=== PATIENT | female | born 1945 | race Two or more races ===

== ENCOUNTER 2025-01-27 03:38 | Emergency (ER) | payer MEDICARE, SELFPAY ==
[2025-01-27 03:40] VITALS: BMI 26.5
[2025-01-27 03:48] VITALS: BP 166/97; PULSE 88; RESP 17; TEMP 36.8; O2SAT 97
--- NOTE | 2025-01-27 03:53 | EKG_ITS ---
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
--- NOTE | 2025-01-27 03:54 | PD.EDRME ---
Rapid Medical Screening Exam RME Arrival date/time: 01/27/25 03:38 79F with history of HTN and recent SBO presents to ED with 1 day of epigastric pain that radiates to throat, as well as some N/V. Patient states this time it feels different than when she had SBO because she a lot of pain then. Now, she's more concerned about the N/V. Chief Complaint: Nausea/Vomiting/Diarrhea Vital signs: Vital Signs Temperature 98.2 F 01/27/25 03:48 Pulse Rate 88 01/27/25 03:48 Respiratory Rate 17 01/27/25 03:48 Blood Pressure 166/97 H 01/27/25 03:48 Pulse Oximetry (%) 97 01/27/25 03:48 Oxygen Delivery Method Room Air 01/27/25 03:48
--- NOTE | 2025-01-27 03:55 | XR_ITS ---
EXAMINATION: PA chest single view TECHNIQUE: 1. Upright PA chest single view Date and time: January 27, 2025, 0400 hours, comparison November 28, 2023 INDICATIONS: Epigastric pain and nausea vomiting today. FINDINGS: : Mild prominence left ventricle Ectatic thoracic aorta. Mild accentuation of bronchovascular markings. No lobar pneumonia or shawn pulmonary edema Moderate osteopenia IMPRESSION: Bronchitis pattern
[2025-01-27] MEDS: ONDANSETRON ODT 4 MG TABRAP PO (04:00)
[2025-01-27 05:02] LABS: Lactate (Lactic Acid) 1.5 mMol/L (0.4-2.0)
[2025-01-27 05:03] LABS: Basophils # (Auto) 0.1 Thou/mm3 (0.0-0.2); Basophils % (Auto) 1 % (0-2.5); Eosinophils # (Auto) 0.1 Thou/mm3 (0.0-0.5); Eosinophils % (Auto) 1 % (0-10); Hematocrit 35.6 % (36.0-46.0); Hemoglobin 11.2 g/dL (12.0-16.0); Immature Granulocytes Auto 0.04 Thou/mm3 (0.00-0.00); Lymphocytes # (Auto) 1.0 Thou/mm3 (1.0-4.8); Lymphocytes % (Auto) 10 % (10-50); Mean Corpuscular HGB Conc 31.5 g/dl (31.0-37.0); Mean Corpuscular Hemoglobin 21.6 pg (25.0-35.0); Mean Corpuscular Volume 69 fL (80-100); Monocytes # (Auto) 0.7 Thou/mm3 (0.0-0.8); Monocytes % (Auto) 6 % (0-12); Neutrophils # (Auto) 8.6 Thou/mm3 (1.8-7.7); Neutrophils % (Auto) 82 % (37-80); Nucleated Red Blood Cell # 0.00 Thou/mm3 (0.00-0.00); Nucleated Red Blood Cell % 0 /100 WBC (0); Platelet Count 391 Thou/mm3 (140-440); RDW Standard Deviation 41.5 fL (36.4-46.3); Red Blood Count 5.18 Miln/mm3 (4.00-5.20); White Blood Count 10.4 Thou/mm3 (3.6-11.0)
[2025-01-27 05:22] LABS: Alanine Aminotransferase 12 U/L (10-49); Albumin, Serum 4.6 gm/dL (3.4-4.8); Albumin/Globulin Ratio 1.6 (1.2-2.2); Alkaline Phosphatase 100 U/L (46-116); Anion Gap 11 (7-16); Aspartate Amino Transferase 25 U/L (0-34); BUN/Creatinine Ratio 16 Ratio (12-20); Bilirubin,Total 0.5 mg/dL (0.3-1.2); Blood Urea Nitrogen 11 mg/dL (9-23); Calcium 9.0 mg/dL (8.3-10.6); Calcium (Corrected) 9.0 mg/dL (8.5-10.1); Carbon Dioxide 25.0 mMol/L (20.0-31.0); Chloride 102 mMol/L (98-107); Creatinine (Component) 0.7 mg/dL (0.6-1.3); Estimated Creatinine Clearance 54.3 mL/min (>60); Globulin 2.8 gm/dL (2.3-3.5); Glucose 159 mg/dL (74-106); Lipase 28 U/L (12-53); Osmolality,Calculated 278 (275-295); Potassium 3.6 mMol/L (3.4-5.1); Sodium 138 mMol/L (136-145); Total Protein 7.4 gm/dL (5.7-8.2); Troponin I < 0.020 ng/mL (0.0-0.045); eGFR > 60 See Note
[2025-01-27 05:40] VITALS: BP 163/81; PULSE 88; RESP 18; TEMP 36.9; O2SAT 99
--- NOTE | 2025-01-27 06:28 | XR_ITS ---
Examination: CT abdomen and pelvis without contrast. Coronal 3-D reconstructions. Sagittal 2-D reconstructions. Date and time of exam: January 27, 2025, 0845 hours INDICATIONS: Upper abdominal pain and burning sensation in the abdomen beginning this morning COMPARISON: November 28, 2023 CTDI: vol (mGy): 7.47 DLP: (mGycm): 372 Technique: Axial images of the abdomen have been obtained, 3 mm slice thickness Intravenous contrast material has not been administered. Low dose protocols were performed. One or more of the following dose reduction techniques were used; automated exposure control, adjustment of the mA and/or KV according to patient size, use of iterative reconstruction technique. Findings: Large retrocardiac gastric hernia No focal liver or splenic lesions Absent gallbladder No extrahepatic biliary tract dilatation No pancreatic or adrenal mass No renal or ureteral calculi, no hydronephrosis Aortic calcification no aneurysmal dilatation Normal appendix Multiple fluid distended small bowel loops in the pelvis Urinary bladder intact No pelvic mass IMPRESSION: Small bowel obstruction pattern, recommend Gastrografin small bowel series follow-up
[2025-01-27] MEDS: SODIUM CHLORIDE 0.9% 1000 ML 1,000 ML 999 ML IV (06:47)
[2025-01-27 07:24] VITALS: BP 170/91; PULSE 92; RESP 18; TEMP 36.6; O2SAT 97
[2025-01-27] MEDS: FAMOTIDINE INJ 10 MG/ML VIAL 2 ML 20 MG IVP (08:33)
[2025-01-27] MEDS: ACETAMINOPHEN IVPB 1,000 MG/100 ML VIAL 250 MG IV (08:56)
[2025-01-27 09:04] VITALS: BP 143/77; PULSE 80; RESP 20; TEMP 36.8; O2SAT 98
[2025-01-27 09:12] LABS: Collection Type, Urine Clean Catch
[2025-01-27 09:19] LABS: Bilirubin,Urine Negative (Negative); Blood,Urine Negative (Negative); Clarity,Urine Clear (Clear/Hazy); Color,Urine Lt-Yellow (Lt Yel-Yel); Glucose, Urine Negative (Negative); Ketones,Urine 1+ (Negative); Leukocyte Esterase,Urine Negative (Negative); Nitrite,Urine Negative (Negative); PH,Urine 7.0 (5.0-7.0); Protein,Urine Negative (Neg - Trace); RBC,Urine 1 /hpf (0-3); Specific Gravity,Urine 1.012 (1.001-1.035); Squamous Epithelial Cell,Urine < 1 /hpf (0-5); Urobilinogen,Urine Negative mg/dL (0.0-1.0); WBC,Urine 1 /hpf (0-5)
--- NOTE | 2025-01-27 10:42 | PD.EDABDPN ---
ED Abdominal Pain RME/HPI General Chief Complaint: Nausea/Vomiting/Diarrhea Stated complaint: NV AND ABD PAIN Time seen by provider: 01/27/25 06:15 Arrival date/time: 01/27/25 03:38 Limitations: no limitations RME / HPI RME / HPI narrative: 01/27/25 03:38 79F with history of HTN and recent SBO presents to ED with 1 day of epigastric pain that radiates to throat, as well as some N/V. Patient states this time it feels different than when she had SBO because she a lot of pain then. Now, she's more concerned about the N/V. DR. CARLSON MAIN ED EVALUATION: 79 year old female with history of hypertension and previous admission for SBO that resolved with gastrografin presents to the ED for evaluation of abdominal pain that began yesterday. Pain described as aching in sensation that is located most to the upper abdomen, rating 8/10 in severity. Accompanied by nausea and vomiting. Reports the pain today feels different than previous episodes of abdominal pain which concerned her. Denies fevers, chills, chest pain, cough, shortness of breath, diarrhea, or urinary symptoms. Related Data Home Medications ?Medication ?Instructions ?Recorded ?Confirmed clonazepam 0.5 mg disintegrating 0.5 mg PO BID 06/06/19 06/06/19 tablet Previous Rx's ?Medication ?Instructions ?Recorded meclizine 25 mg tablet 25 mg PO TID PRN dizziness #20 tabs 04/13/23 losartan 50 mg tablet 50 mg PO QDAY #30 tabs 11/30/23 Allergies Allergy/AdvReac Type Severity Reaction Status Date / Time ibuprofen Allergy Mild Rash Verified 01/27/25 03:43 Review of Systems Review of Systems Systems Reviewed: All systems reviewed, normal except as documented Past Medical History Past Medical History CARDIAC: Positive Hypercholesterolemia and Hypertension ENDOCRINE: Positive Hypothyroidism Surgical History SURGICAL: Positive Abdominal Surgery Social History SMOKING STATUS: Never smoker SUBSTANCE USE: does not use ED Exam General Limitations: Present no limitations General appearance: Present alert and in no apparent distress Head Head exam: Present atraumatic, normocephalic and normal inspection Eye Eye exam: Present normal appearance, PERRL and EOMI ENT ENT exam: Present normal exam, normal oropharynx and mucous membranes moist Neck Neck exam: Present normal inspection, full ROM and trachea midline Chest Chest inspection: Present normal inspection and symmetric chest wall rise Respiratory Respiratory exam: Present normal lung sounds bilaterally Cardiovascular Cardiovascular exam: Present regular rate, normal rhythm and normal heart sounds Abdominal Exam Abdominal exam: Present soft, distention (mild ), tenderness (epigastric region ) and normal bowel sounds; Absent guarding, rebound or rigidity Extremities Exam Extremities exam: Present normal inspection and full ROM Back Exam Back exam: Present normal inspection and full ROM Neurological Exam Neurological exam: Present alert, oriented X3 and CN II-XII intact Psychiatric Psychiatric exam: Present normal affect and normal mood Skin Skin exam: Present warm, dry, intact and normal color Course Quality Measures none Orders Category Date Time Status Bread Panner NOW Care 01/27/25 06:30 Completed Continuous Pulse Oximetry NOW Care 01/27/25 06:30 Completed EKG (ED ONLY) *Do not use* NOW Care 01/27/25 03:53 Completed Insert IV NOW Care 01/27/25 06:[address] abdomen pelvis wo con Stat Exams 01/27/25 06:28 Completed EKG (ED Only) Stat Exams 01/27/25 03:53 Draft XR chest 1V portable Stat Exams 01/27/25 03:55 Completed CBC Stat Lab 01/27/25 04:38 Completed CMP [Comprehensive Metabolic Panel] Stat Lab 01/27/25 04:38 Completed Lactate (Lactic Acid) Stat Lab 01/27/25 04:38 Completed Lipase Stat Lab 01/27/25 04:38 Completed Path Review Blood Smear Stat Lab 01/27/25 04:38 Completed Troponin I Stat Lab 01/27/25 04:38 Completed Urinalysis Stat Lab 01/27/25 09:00 Completed Acetaminophen Ivpb [Ofirmev Inj] Med 01/27/25 08:11 Discontinued 1,000 mg in 100 ml IV X1 Famotidine Inj [Pepcid Inj] Med 01/27/25 08:11 Discontinued 20 mg IVP X1 ONE Ondansetron Odt [Zofran Odt] Med 01/27/25 03:53 Discontinued 4 mg PO X1 ONE Sodium Chloride 0.9% 1000 ml [Ns] 1,000 ml Med 01/27/25 06:30 Discontinued IV 999 mls/hr Vital Signs Vital signs: Vital Signs Temperature 98.2 F 01/27/25 03:48 Pulse Rate 88 01/27/25 03:48 Respiratory Rate 17 01/27/25 03:48 Blood Pressure 166/97 H 01/27/25 03:48 Pulse Oximetry (%) 97 01/27/25 03:48 Oxygen Delivery Method Room Air 01/27/25 03:48 Pulse ox is 97% on room air which is adequate. Abdominal Pain MDM MDM Narrative MDM Narrative:: IJeffNikijackie Whittaker, am scribing for and in the presence of Dr. Carlson. 1140: Patient has declined to do the gastrografin that was ordered due to possible bowel obstruction findings on CT. The patient reports she feels improved and is requesting to go home. We had a long discussion regarding which foods to eat which include soft and easily digestible foods. I advised if the pain worsens or she begins vomiting, unable to tolerate any po to return to the ED. Patient data External records reviewed:: [facility] previous records Clinical information provided by:: patient Social determinants that could affect healthcare access:: none Patient has the following chronic illnesses:: HTN, previous SBO How is presenting disease/condition affected by chronic disease/condition?: exacerbated by Evaluation data The following diagnostics were reviewed and interpreted by me:: lab results, radiology exam(s) and EKG tracing(s) Lab and/or radiology exams considered but not ordered:: None Interpretation Summary: Ordering Physician: Luca Owen PA-C Date of Service: 01/27/25 Procedure(s): XR chest 1V portable Accession Number(s): [id number] cc: Jimi Dias; Chun Watts MD; Luca Owen PA-C~ EXAMINATION: PA chest single view TECHNIQUE: 1. Upright PA chest single view Date and time: January 27, 2025, 0400 hours, comparison November 28, 2023 INDICATIONS: Epigastric pain and nausea vomiting today. FINDINGS: : Mild prominence left ventricle Ectatic thoracic aorta. Mild accentuation of bronchovascular markings. No lobar pneumonia or shawn pulmonary edema Moderate osteopenia IMPRESSION: Bronchitis pattern Dictated By: Chun Watts MD Signed By: <Electronically signed by Chun Watts MD in OV> 01/27/25 0745 Ordering Physician: Russell Carlson MD Date of Service: 01/27/25 Procedure(s): CT abdomen pelvis wo con Accession Number(s): [id number] cc: Jimi Dias; Russell Carlson MD; Chun Watts MD~ Examination: CT abdomen and pelvis without contrast. Coronal 3-D reconstructions. Sagittal 2-D reconstructions. Date and time of exam: January 27, 2025, 0845 hours INDICATIONS: Upper abdominal pain and burning sensation in the abdomen beginning this morning COMPARISON: November 28, 2023 CTDI: vol (mGy): 7.47 DLP: (mGycm): 372 Technique: Axial images of the abdomen have been obtained, 3 mm slice thickness Intravenous contrast material has not been administered. Low dose protocols were performed. One or more of the following dose reduction techniques were used; automated exposure control, adjustment of the mA and/or KV according to patient size, use of iterative reconstruction technique. Findings: Large retrocardiac gastric hernia No focal liver or splenic lesions Absent gallbladder No extrahepatic biliary tract dilatation No pancreatic or adrenal mass No renal or ureteral calculi, no hydronephrosis Aortic calcification no aneurysmal dilatation Normal appendix Multiple fluid distended small bowel loops in the pelvis Urinary bladder intact No pelvic mass IMPRESSION: Small bowel obstruction pattern, recommend Gastrografin small bowel series follow-up Dictated By: Chun Watts MD Signed By: <Electronically signed by Chun Watts MD in OV> 01/27/25 0929 Medications / Prescriptions Medications or Prescriptions considered but not ordered:: None Medication administrations:: Medication Administration History Discontinued Medications Famotidine (Famotidine Inj 10 Mg/Ml Vial 2 Ml) 20 mg IVP X1 ONE Stop: 01/27/25 08:12 Last Admin: 01/27/25 08:33 Dose: 20 mg Documented By: ED Sodium Chloride (Ns) 1,000 mls @ 999 mls/hr IV .Q1H1M ONE Stop: 01/27/25 07:30 Last Infusion: 01/27/25 07:48 Dose: Infused Documented By: Admin: 01/27/25 06:47 Dose: 999 mls/hr Documented By: FLORENTIN Acetaminophen (Ofirmev Inj) 1,000 mg in 100 mls @ 250 mls/hr IV X1 ONE Stop: 01/27/25 08:34 Last Infusion: 01/27/25 09:20 Dose: Infused Documented By: Admin: 01/27/25 08:56 Dose: 250 mls/hr Documented By: BY Ondansetron HCl (Ondansetron Odt 4 Mg Tabrap) 4 mg PO X1 ONE; Protocol Stop: 01/27/25 03:54 Last Admin: 01/27/25 04:00 Dose: 4 mg Documented By: AM See above Consultations Consultation(s) initiated? (list below): No Diagnosis Differential diagnosis abdominal pain: abdominal pain, constipation, diverticulitis, gastroenteritis and small bowel obstruction Most likely diagnosis given after review of the tests above:: Ileus Possible bowel obstruction Admission Indicated Admission indicated?: not indicated Admission Request Was there a request for admission?: No Disposition Plan Disposition Plan: Discharge Discharge Attestation Discharge Attestation: The patient and all family members were given an opportunity to ask questions and understood the discharge instructions. Discharge instructions specifically effects, indications for sooner follow up or return to the emergency department, and the expected course of current diagnosis. Patient condition: Stable Discharge Plan Plan Patient Disposition: HOME (Self Care) Patient condition on transfer: Stable Prescriptions/Referrals Prescriptions/Med Rec: No Action clonazepam 0.5 mg Tablet,Disintegrating 0.5 mg PO BID losartan 50 mg tablet 50 mg PO QDAY Qty: 30 0RF meclizine 25 mg tablet 25 mg PO TID PRN (Reason: dizziness) Qty: 20 0RF Referrals: Jimi Silveira [Primary Care Provider] - In 1 week Problem List Clinical Impression: Ileus, Abdominal pain Patient/Caregiver Discharge Instructions Discharge Activity: activity as tolerated Education Materials: Abdominal Pain, Ileus Additional Instructions: Clear fluids as your diet. When you are tolerating this well advance your diet slowly. If you start vomiting or have increased abdominal pain please return to the ER as you most likely have a small bowel obstruction and need further evaluation. Follow-up with your doctor next Friday. Consider gastroenterology evaluation. Print Language: Shivbi (Catarino) Stand Alone Forms: Martha Award Info., Patient Portal Info Letter
--- NOTE | 2025-01-27 12:11 | PC.NURSE ---
patient states she is feeling a lot better , and is refusing the test ordered by the provider, per son they will go home and see how she feels, if not feeling well she will return, patient and son spoke to provider and are going home , at this time, patient is alert and verbal no noted s.s of distress, denies any pain at this time
[2025-01-27 12:12] VITALS: BP 125/74; PULSE 75; RESP 20; TEMP 36.7; O2SAT 97
[2025-01-27 16:35] LABS: Path Review Blood Smear Sent to Pathologist
== END 2025-01-27 12:15 | disposition home or self-care (01) ==
PROVIDERS: Physician Assistant; Emergency Provider Family Medicine; PCP Physician Assistant
DX: J40 Bronchitis, not specified as acute or chronic (principal); I10 Essential (primary) hypertension
CPT/HCPCS: 36415; 71045; 74176; 80053; 81001; 83605; 83690; 84484; 85025; 93005; 96361; 96365; 96375; 99284; J0131; J3490; J7030; Q0162